=== PATIENT | male | born 1940 | race Caucasian/White ===

== ENCOUNTER 2017-04-17 09:28 | Emergency (ER) | payer MEDICARE, OTHER ==
[2017-04-17 10:07] LABS: Hematocrit 35.9 % (42.0-52.0); Hemoglobin 11.9 gm/dL (13.5-18.0); Mean Cell Volume 90.7 fl (78-100); Mean Corpuscular Hemoglobin 30.1 pg (27-31); Mean Corpuscular Hgb Conc 33.1 g/dl (32-36); Mean Platelet Volume 10.2 fl (6.0-9.5); Neutrophil # 2.7 K/mm3 (1.3-6.0); Neutrophil % 53.8 % (42-75.0); Platelet Count 153 K/mm3 (150-450); Red Blood Count 3.96 M/mm3 (4.7-6.0); Red Cell Distribution Width 15.6 % (11.5-14.0)
--- NOTE | 2017-04-17 10:17 | ERNOTE ---
Dyspnea - General Time Seen by Provider: 04/17/17 09:46 Source: patient Exam Limitations: no limitations - Immun/Allergies/Home Medications Immunizations: IMMUNIZATION HX Immunizations Up to Date Yes History of Influenza Vaccine No Hx Pneumococcal Vaccination No Allergies/Adverse Reactions: Allergies No Known Allergies Allergy (Verified 04/17/17 09:34) Home Medications: HOME MEDICATIONS Carvedilol [Coreg] 12.5 mg PO QAM 09/30/15 [Last Taken 09/29/15 10:00] Carvedilol [Coreg] 18.75 mg PO QPM 09/30/15 [Last Taken 09/29/15 18:00] Furosemide [Lasix] 80 mg PO BID 09/30/15 [Last Taken 09/30/15 08:30] Losartan Potassium [Cozaar] 150 mg PO DAILY 09/30/15 [Last Taken Unknown] Potassium Chloride [K-Dur] 20 meq PO DAILY 09/30/15 [Last Taken 09/29/15 10:00] - History of Present Illness Narrative: Patient comes in for feeling short of breath since this morning when he woke up. He denies any fevers or chills or cough or congestion. He has been diagnosed with a touch of asthma and he has an inhaler but he did not take any of his breathing treatments this morning. Review of Systems - Review of Systems Constitutional: Present: no symptoms reported EYE: Present: no symptoms reported ENT: Present: no symptoms reported Respiratory: Present: See HPI Cardiology: Present: no symptoms reported Gastrointestinal/Abdominal: Present: no symptoms reported Genitourinary: Present: no symptoms reported - Patient's Past Medical History Patient History - Medical: Anemia, Arthritis Patient History - Cardiac/Respiratory: Asthma, Hypertension Patient History - Cancer: No Hx of Cancer Patient History - Surgical Procedures: Colonoscopy, Total Knee Replacement, T & A, Other Patient History - Other: None - Family History Mother Family History - Medical: , Diabetes Type 2 Insulin Dependent Family History - Cardiac/Respiratory: CVA/Stroke Father Family History - Medical: , Diabetes Type 2 Insulin Dependent Family History - Cardiac/Respiratory: Other Sister Family History - Medical: , Diabetes Type 2 Family History - Cardiac/Respiratory: History Unknown Brother Family History - Medical: Diabetes Type 2 Family History - Cardiac/Respiratory: History Unknown - Social History Living Situations: spouse Abuse History: No History of abuse Psych History: No pertinent hx Smoking Status: Never smoker Have you smoked in the past 12 months: No Do you dip or chew tobacco: No Alcohol Use: none Drug Use: none - Immunizations Immunizations Up to Date: Yes Hx Pneumococcal Vaccination: No History of Influenza Vaccine: No Physical Exam - Physical Exam General Appearance: Present: wd/wn, alert, no apparent distress Head Exam: Present: normal inspection, no evidence of injury Ears, Nose, Throat: Present: normal ENT inspection, normal pharynx Neck: Present: normal inspection, nontender Respiratory: Present: no respiratory distress, normal breath sounds, no accessory muscle use, chest nontender, lungs clear Cardiovascular/Chest: Present: regular rate, rhythm, no murmur, normal peripheral pulses Back Exam: Present: normal inspection Extremity Exam: Present: normal inspection, normal range of motion ED Progress - Results and Orders Patient's Lab Results:: I have reviewed the patient's lab results. - Vital Signs Patient's Vital Signs:: I have reviewed the patient's vital signs. Vital Signs: Vital Signs 04/17/17 09:30 Temperature 36.7 C Pulse Rate 53 L Respiratory 16 Rate Blood Pressure 215/78 O2 Sat by Pulse 97 Oximetry - X-Ray X-Ray #1 X-Ray: chest - Progress/Reassessment Chief Complaint: Dyspnea Departure Clinical Impression: Asthma Qualifiers: Asthma severity: unspecified severity Asthma complication type: uncomplicated Qualified Code(s): J45.909 - Unspecified asthma, uncomplicated - Departure Disposition: Home self-care Condition: Good Instructions: Bronchospasm, Adult Referrals: Solomon Jensen MD [Primary Care Provider] -
[2017-04-17 10:38] VITALS: BP 156/84
== END 2017-04-17 10:38 | disposition home or self-care (01) ==
LOC: ER 09:28
DX: J45.909 Unspecified asthma, uncomplicated (principal); D64.9 Anemia, unspecified; M19.90 Unspecified osteoarthritis, unspecified site; I10 Essential (primary) hypertension

== ENCOUNTER 2017-08-22 17:46 | Emergency (ER) | payer MEDICARE, OTHER ==
[2017-08-22] MEDS ORDERED: NITROGLYCERIN 0.4 MG/TAB BTL SL ONE (17:57)
[2017-08-22] MEDS: NITROGLYCERIN 0.4 MG/TAB BTL SL PRN ×3 (18:03→18:12)
[2017-08-22 18:09] LABS: Hematocrit 37.5 % (42.0-52.0); Hemoglobin 12.4 gm/dL (13.5-18.0); Mean Cell Volume 91.9 fl (78-100); Mean Corpuscular Hemoglobin 30.4 pg (27-31); Mean Corpuscular Hgb Conc 33.1 g/dl (32-36); Mean Platelet Volume 10.5 fl (6.0-9.5); Neutrophil # 3.9 K/mm3 (1.3-6.0); Neutrophil % 59.1 % (42-75.0); Platelet Count 131 K/mm3 (150-450); Red Blood Count 4.08 M/mm3 (4.7-6.0); Red Cell Distribution Width 15.9 % (11.5-14.0); White Blood Count 6.7 K/mm3 (4.0-10.5)
--- NOTE | 2017-08-22 18:09 | ERNOTE ---
Chest Pain/Cardiac HPI Time Seen by Provider: 08/22/17 17:47 Source: patient Exam Limitations: no limitations Immunizations: IMMUNIZATION HX Immunizations Up to Date Yes History of Influenza Vaccine No Hx Pneumococcal Vaccination No Allergies/Adverse Reactions: Allergies No Known Allergies Allergy (Verified 08/22/17 17:57) Home Medications: HOME MEDICATIONS Carvedilol [Coreg] 12.5 mg PO BID 09/30/15 [Last Taken 09/29/15 10:00] Furosemide [Lasix] 80 mg PO BID 09/30/15 [Last Taken 09/30/15 08:30] Losartan Potassium [Cozaar] 150 mg PO DAILY 09/30/15 [Last Taken Unknown] Potassium Chloride [K-Dur] 20 meq PO BID 09/30/15 [Last Taken 09/29/15 10:00] Cholecalciferol (Vitamin D3) [Vitamin D3] 10,000 unit PO DAILY 08/22/17 [Last Taken Unknown] Isosorbide Mononitrate [Isosorbide Mononitrate ER] 30 mg PO DAILY 08/22/17 [ Last Taken Unknown] Levothyroxine Sodium [Synthroid] 25 mcg PO DAILY 08/22/17 [Last Taken Unknown] Ranitidine HCl [Zantac] 150 mg PO BID 08/22/17 [Last Taken Unknown] Turmeric/Turmeric Root Extract [Turmeric 500 mg Capsule] 2 each PO BID 08/22/17 [Last Taken Unknown] Narrative: Patient has had epigastric pain/ chest pain for about two months. The pain is more or less constant but worse with activity and exertion. Patient has been evaluated by his PCP for abdominal pain without any definite diagnosis yet. He has a history of CHF, states that he had a stress test two years ago. About two hours prior to coming here he started to have severe epigastric pain radiating up into his chest as well as his back, rates it 9/10, pain started at rest. He slipped a couple days ago and fell,hit the right side of his chest and has had pain in that area ever since, worse with movement. he had a late breakfast at 10:00, ate yogurt at 15:00 Timing: constant Severity/Quality: severe, pressure Location: epigastric Chest Pain Radiation: back Activities at Onset: none Modifying Factors - Improves: Present: rest Modifying Factors - Worsens: Present: movement Nitro Today/Relief: no nitro taken today Aspirin Treatment Today: 325 mg x 1, provided at home Associated Symptoms: Present: shortness of breath. Absent: headache, dizziness , syncope, cough, fever/chills, palpitations, heartburn, nausea, vomiting Prior Treatment: Denies: recently seen, currently on antibiotics Review of Systems - Review of Systems Constitutional: Absent: recent illness, fever ENT: Absent: nose congestion, sore throat Respiratory: Absent: shortness of breath, cough Cardiology: Present: See HPI Gastrointestinal/Abdominal: Absent: nausea, vomiting, abdominal pain Genitourinary: Present: no symptoms reported Musculoskeletal: Absent: back pain, joint pain Neurological: Absent: headache, weakness, numbness - Patient's Past Medical History Patient History - Medical: Anemia, Arthritis Patient History - Cardiac/Respiratory: Asthma, CHF, COPD, Hypertension Patient History - Cancer: No Hx of Cancer Patient History - Surgical Procedures: Colonoscopy, Total Knee Replacement, T & A, Other Patient History - Other: None - Family History Mother Family History - Medical: , Diabetes Type 2 Insulin Dependent Family History - Cardiac/Respiratory: CVA/Stroke Father Family History - Medical: , Diabetes Type 2 Insulin Dependent Family History - Cardiac/Respiratory: Other Sister Family History - Medical: , Diabetes Type 2 Family History - Cardiac/Respiratory: History Unknown Brother Family History - Medical: Diabetes Type 2 Family History - Cardiac/Respiratory: History Unknown - Social History Abuse History: No History of abuse Psych History: No pertinent hx Smoking Status: Never smoker Have you smoked in the past 12 months: No Do you dip or chew tobacco: No Alcohol Use: none Drug Use: none - Immunizations Immunizations Up to Date: Yes Hx Pneumococcal Vaccination: No History of Influenza Vaccine: No Physical Exam - Physical Exam General Appearance: Present: wd/wn, alert, no apparent distress Head Exam: Present: normal inspection Eye Exam: Normal inspection: bilateral Respiratory: Present: no respiratory distress, normal breath sounds, lungs clear , chest tenderness - right anterior lower ribs tender, normal inspection Cardiovascular/Chest: Present: regular rate, rhythm, no murmur Gastrointestinal/Abdominal: Present: normal bowel sounds, soft, tenderness - epigastric and right upper quadrant, distended Extremity Exam: Present: pedal edema - +1 Neurological Exam: Present: alert, oriented, normal mood/affect Skin Exam: Present: normal color, warm/dry ED Progress - Results and Orders Patient's Lab Results:: I have reviewed the patient's lab results. - Vital Signs Patient's Vital Signs:: I have reviewed the patient's vital signs. Vital Signs: Vital Signs 08/22/17 17:49 Temperature 36.7 C Pulse Rate 55 L Respiratory 16 Rate O2 Sat by Pulse 100 Oximetry - EKG EKG: NSR, unchanged from - 09/1016, other - signs of hypertrophy EKG read: Interp. by me - X-Ray X-Ray #1 X-Ray: chest - cardiomegaly, mild congestion, no acute changes Interpretation: Interp. by me - Progress/Reassessment Progress Note-Subjective: 08/22/17 18:18 pain in chest and back resolved after nitro, pain in epigastric area back to baseline (04/11) HR 40's 08/22/17 18:25 repeat EKG afib HR 48 08/22/17 18:50 reviewed prior chart, patient has had wide pulse pressure consistently has multiple chest CTs, normal aorta discussed test results with patient, patient is very adamant about not wanting to be in the hospital but wanting to go home scheduled out patient ultrasound for tomorrow morning Departure Clinical Impression: Acute chest wall pain - Departure Disposition: Home self-care Condition: Good Instructions: Chest Pain Observation Additional Instructions: follow up tomorrow for an ultrasound of your gallbladder (appointment 07:00, please check in at 06:45) have nothing to eat or drink after 11pm tonight Referrals: Solomon Jensen MD [Primary Care Provider] -
[2017-08-22 18:28] LABS: Albumin * 4.2 gm/dl (3.4-5.0); Anion Gap 11.1 mmol/L (6.8-13.8); BUN/Creatinine Ratio 17.7 (9.0-21.6); Ca. Corrected For Albumin 8.9 mg/dL (8.4-10.2); Calcium * 9.4 mg/dL (7.9-10.9); Carbon Dioxide 29.4 mmol/L (24-32.6); Potassium 3.5 mmol/L (3.4-4.6); Total Protein 8.6 gm/dL (6.2-8.2)
[2017-08-22 18:29] LABS: Troponin I 0.05 ng/ml (0.00-0.10)
[2017-08-22] MEDS ORDERED: MORPHINE SULFATE 2 MG/ML DISP.SYRIN IV ONE (18:57)
[2017-08-22] MEDS ORDERED: FUROSEMIDE 40 MG TABLET PO ONE (18:58)
[2017-08-22] MEDS ORDERED: MORPHINE SULFATE 2 MG/ML DISP.SYRIN ONE (18:59)
[2017-08-22] MEDS ORDERED: FUROSEMIDE 40 MG TABLET ONE (19:00)
[2017-08-22] MEDS ORDERED: LOSARTAN POTASSIUM 50 MG TABLET ONE (19:08)
[2017-08-22 20:00] VITALS: BP 209/78
[2017-08-22] MEDS ORDERED: LOSARTAN POTASSIUM 50 MG TABLET PO ONE (20:00)
== END 2017-08-22 20:00 | disposition home or self-care (01) ==
LOC: ER 17:46
DX: R07.89 Other chest pain (principal); D64.9 Anemia, unspecified; M19.90 Unspecified osteoarthritis, unspecified site; J44.9 Chronic obstructive pulmonary disease, unspecified; I10 Essential (primary) hypertension

== ENCOUNTER 2017-10-04 10:54 | Inpatient (IN) | payer MEDICARE, OTHER ==
[~2017-10-04 10:54] MED LIST: RINGER'S SOLUTION,LACTATED 1,000 ML IV PRN; ceFAZolin SODIUM 2 GM in DEXTROSE 5 % IN WATER 50 ML IV PRN
[2017-10-04] MEDS ORDERED: RINGER'S SOLUTION,LACTATED 1,000 ML IV ONE ×3 (11:39→13:20)
[2017-10-04] MEDS ORDERED: ceFAZolin SODIUM 1 GM VIAL IV ONE (11:55)
[2017-10-04] MEDS ORDERED: BUPIVACAINE HCL/EPINEPHRINE 50 ML VIAL IJ ONE ×2 (12:20→12:31)
[2017-10-04] MEDS ORDERED: MUPIROCIN 22 APPL TUBE TP ONE ×4 (12:33→13:40)
[2017-10-04] MEDS ORDERED: RINGER'S SOLUTION,LACTATED 1,000 ML IV PRN (14:43)
[2017-10-04] MEDS ORDERED: oxyCODONE HCL/ACETAMINOPHEN 1 TAB TABLET PO ONE (15:15)
[2017-10-04] MEDS ORDERED: PANTOPRAZOLE SODIUM 40 MG in NORMAL SALINE 100 ML IV ONE (15:46)
[2017-10-04] MEDS: MORPHINE SULFATE 2 MG/ML DISP.SYRIN IV PRN ×5 (16:14→18:00)
[2017-10-04] MEDS ORDERED: oxyCODONE HCL/ACETAMINOPHEN 1 TAB TABLET PO PRN (16:47)
[2017-10-04] MEDS ORDERED: ONDANSETRON HCL/PF 2 MG/ML VIAL IV PRN (16:47)
[2017-10-04] MEDS ORDERED: HYDROmorphone HCL IN 0.9% NACL 50 ML CARTRIDGE IV PRN (16:47)
--- NOTE | 2017-10-04 17:09 | OR ---
Operative Report - Dictated Report Narrative: Operative Report Date of operation: 10/04/2017 Preoperative diagnosis: Epigastric pain, anemia, cholelithiasis Postoperative diagnosis: Gastritis (pathology CLOtest pending). Cholelithiasis and cholecystitis Operation: EGD with biopsies. Laparoscopic cholecystectomy Surgeon: Dr Garcia Anesthesia: Gen. bandar Pace CRNA Indications for procedure: The patient is a 77-year-old male referred by Dr. Jensen. The patient has had epigastric and right upper quadrant discomfort. He has gallstones on ultrasound. He has significant GERD symptoms Findings: Significant gastritis (pathology and CLOtest pending). Evidence of chronic cholecystitis with multiple adhesions Narrative of procedure: The patient was identified preoperatively, and prior to the administration of anesthetic a multidisciplinary timeout was observed EGD: With the patient in the supine position, SCDs were placed, glide scope assisted endotracheal intubation was performed, and general endotracheal anesthetic administered. The flexible fiberoptic gastroscope was advanced into the posterior pharynx which appeared normal. The endotracheal tube was seen to be in good position. The supraglottic larynx appeared normal. The scope was advanced under direct vision into the proximal esophagus which appeared normal. The esophagus appeared freely distensible with normal mucosa. The esophageal mucosa appeared normal down to the gastroesophageal junction which was sharp and noninflamed. The GE junction appeared normally distensible. The scope was advanced into the stomach which was insufflated with air. Immediately apparent was pending gastric erythema with several friable areas although no clinton ulcers or neoplastic-appearing lesions were present including a retroflexed view of the gastric fundus. The pylorus appeared patent. The scope was advanced into the duodenal bulb which appeared normal. The scope was advanced further to the horizontal portion of the duodenum which appeared normal , specifically the villous architecture appeared well preserved and clear bile was present. The scope was slowly withdrawn through the duodenal bulb with confirmation that no active ulcer was present. The scope was withdrawn into the stomach and personal banking representative biopsies of gastric mucosa obtained for CLOtest and pathology. The biopsy sites were seen to be hemostatic. The insufflated air was removed and the stomach, the scope withdrawn from the patient, and this portion of the procedure terminated. LAPAROSCOPIC CHOLECYSTECTOMY: 2 g of intravenous Ancef were administered. The patient's abdomen was prepped with Betadine solution and a generous operating field outlined with 4 sterile towels. The remainder the patient was covered with a sterile disposable drape. An infraumbilical skin incision was made. Dissection was carried along the umbilical stalk until the fascia of the linea alba was encountered. This was incised. The peritoneum was then elevated and incised to allow entry into the abdomen under direct vision. A Hussan cannula was placed, and the abdomen insufflated with CO2. The laparoscopic camera was introduced and the abdomen briefly explored. Portions of the liver and stomach visualized appeared normal. Omentum was adherent over the expected location of the gallbladder. The right colon appeared normal. Next under direct vision 3 additional working ports were inserted through separate skin incisions, one in the subxiphoid, one in the right upper quadrant, and one in the right flank. Omental adhesions were removed from the apex of the gallbladder by electrocautery and scissor dissection until the apex of the gallbladder was free. The apex of the gallbladder was retracted cephalad. Using a combination of blunt, hydrostatic, and electrocautery dissection the omental adhesions and transverse colon were removed from the gallbladder down to the expected location of the cystic duct. The cystic duct was dissected free for a sufficient distance for confident identification. It was doubly clipped and divided. The cystic artery was identified doubly clipped and divided. The gallbladder was then removed from the liver bed by retrograde electrocautery dissection. Prior to severing the last attachments of the gallbladder the liver bed was inspected and found to be hemostatic with no evidence of bile leak. The previously placed clips were seen to be intact. The right upper quadrant was suctioned clean. The last attachments of the gallbladder were divided. It was placed in an Endobag and parked in the right upper quadrant. The smaller working ports were withdrawn under direct vision to ensure entry site hemostasis. The gallbladder was removed in conjunction with the Hussan cannula. The pneumoperitoneum was allowed to escape, and after receiving a correct sponge needle and instrument count attention was turned to closing the abdomen. The fascia and peritoneum at the umbilicus were approximated with interrupted sutures of #1 Vicryl. Skin incisions were approximated with interrupted vertical mattress sutures of 4-0 nylon. The operative sites were washed and dried. Dressings of Bactroban ointment and large Band-Aids were applied to the small port sites. The umbilical incision was dressed with Bactroban ointment, 2 x 2, large Band-Aid and Medipore tape. The operative procedure was terminated at this point. The patient tolerated the anesthetic and procedure well without complication. There was no measurable blood loss. The gallbladder was submitted to pathology. 0.25% Marcaine with epinephrine was used for local anesthetic infiltration. The patient was transferred to the recovery room awake, extubated , and in stable condition. The patient remained stable throughout a period of postoperative observation. He was able to tolerate po intake but had significant abdominal discomfort requiring IV medication for control. I reviewed the operative findings with him and his and he was given copies of the photographs which appear in the medical record. He will be placed in observation bed to achieve better pain control. His usual medications will be resumed. Reviewed and electronically signed
[2017-10-04] MEDS: ISOSORBIDE MONONITRATE 30 MG TAB.SR.24H PO SCH (17:58)
[2017-10-04] MEDS: LOSARTAN POTASSIUM 50 MG TABLET PO SCH (17:59)
[2017-10-04] MEDS ORDERED: MORPHINE SULFATE 2 MG/ML DISP.SYRIN ONE (18:54)
[2017-10-04] MEDS: MORPHINE SULFATE 4 MG/ML SYRG IV PRN ×2 (18:56→19:18)
[2017-10-04] MEDS ORDERED: CARVEDILOL 25 MG TABLET ONE (20:14)
[2017-10-04] MEDS: CARVEDILOL 12.5 MG TABLET PO SCH (20:14)
[2017-10-05] MEDS: RINGER'S SOLUTION,LACTATED 1,000 ML IV PRN ×2 (01:48→20:33)
[2017-10-05] MEDS: LEVOTHYROXINE SODIUM 25 MCG TABLET PO SCH (07:08)
[2017-10-05] MEDS ORDERED: MORPHINE SULFATE 2 MG/ML DISP.SYRIN IV PRN (07:45)
[2017-10-05] MEDS ORDERED: METOCLOPRAMIDE HCL 5 MG/ML VIAL IV ONE (08:28)
[2017-10-05] MEDS ORDERED: BISACODYL 5 MG TABLET.DR PO ONE ×2 (08:29→16:17)
[2017-10-05] MEDS: CARVEDILOL 12.5 MG TABLET PO SCH ×2 (09:28→20:28)
[2017-10-05] MEDS: ISOSORBIDE MONONITRATE 30 MG TAB.SR.24H PO SCH (09:28)
[2017-10-05] MEDS: LOSARTAN POTASSIUM 50 MG TABLET PO SCH (09:28)
[2017-10-05] MEDS: AMOXICILLIN TRIHYDRATE 500 MG CAPSULE PO SCH (12:35)
[2017-10-05] MEDS ORDERED: SODIUM PHOSPHATE,MONO-DIBASIC 1 ENEMA BTL RC ONE (16:17)
--- NOTE | 2017-10-05 18:30 | PN ---
Dictated Progress Note - Date and Time Seen: Date: 10/05/17 Time: 18:27 - 3rd visit - Progress Note Narrative: Vital Signs - Last Taken Temp 36.4 C L 10/05/17 15:29 Pulse 63 10/05/17 15:29 Resp 16 10/05/17 15:29 BP 180/64 10/05/17 16:56 Pulse Ox 93 10/05/17 15:51 Culture 10/04/17 12:15 CLOtest - Final Biopsy POD#1 laparoscopic cholecystectomy for cholelithiasis and cholecystitis with H Pylori infection on gastric biopsy He vomited twice and BP control suboptimal. No BM/flattus until enema and " feels full again". Pain better controlled, but still uses [employer] occasionally. Will require an additional midnight until ready for home.
[2017-10-05] MEDS: CLARITHROMYCIN 500 MG TABLET PO SCH (20:28)
[2017-10-06] MEDS: AMOXICILLIN TRIHYDRATE 500 MG CAPSULE PO SCH (00:39)
[2017-10-06] MEDS: LOSARTAN POTASSIUM 50 MG TABLET PO SCH (09:26)
[2017-10-06] MEDS: CLARITHROMYCIN 500 MG TABLET PO SCH (09:27)
[2017-10-06] MEDS: ISOSORBIDE MONONITRATE 30 MG TAB.SR.24H PO SCH (09:27)
[2017-10-06] MEDS: CARVEDILOL 12.5 MG TABLET PO SCH (09:27)
[2017-10-06] MEDS: LEVOTHYROXINE SODIUM 25 MCG TABLET PO SCH (09:27)
--- NOTE | 2017-10-06 12:21 | DS ---
(1) Cholecystitis with cholelithiasis Diagnosis(s): H Pylori infection Problem: Resolved Qualifiers: Cholelithiasis location: gallbladder Cholecystitis acuity: acute and chronic Biliary obstruction: without biliary obstruction Qualified Code(s): K80.12 - Calculus of gallbladder with acute and chronic cholecystitis without obstruction Description of Stay: The patient is a 77-year-old male with 2 years of abdominal discomfort. Ultrasound showed cholelithiasis and cholecystitis. He was brought for ambulatory surgery EGD with biopsies and laparoscopic cholecystectomy. Preoperatively he used chlorhexidine wipes and preoperative antibiotics were given. SCDs and early ambulation were used for VTE prophylaxis. On EGD he was found to have severe gastritis and the CLOtest immediately turned positive. His gallbladder showed evidence of chronic inflammation with adhesions to surrounding structures. The gallbladder could be removed laparoscopically. Postoperatively he had considerable abdominal discomfort which required IV medication for pain control and he was placed initially in an Observation bed. IV fluids, SEAT JOINER analgesics were given. VTE prophylaxis was accomplished with SCDs and early ambulation with pharmacologic intervention contraindicated due to postoperative bleeding concerns. By the morning of the first postoperative day his vital signs were relatively normal with exception of elevated blood pressure however he was vomiting and despite medication over the course of the day could not maintain adequate by mouth intake for discharge although he did tolerate initiated medications for his H. pylori. He was therefore placed in a acute status with continued IV fluids, IV pain medication, and anti-emetics. His bowels did move with an enema. By the morning of the second postoperative day he was afebrile with stable vital signs. He was able to tolerate by mouth intake and was up with minimal assistance. His incisions appear to be clean and healing well. He was discharged home with instructions not to lift and not to drive. He is to keep the current dressings dry but may shower and change the dressings daily or as needed. He has phone numbers to call for questions or concerns. He was given written prescriptions for a Prevpac and Percocet for pain. A return office appointment will be made for 1 week. Procedures Performed: see notes below - EGD with biopsies Laparoscopic cholecystectomy Discharge Location: Home Disposition: Home self-care Condition: Good Discharge Activity: Activity as tolerated, No Lifting Discharge Diet: General/regular food Referrals: Solomon Jensen MD [Primary Care Provider] - Problem Oriented Discharge Instructions to Patient/Family: Laparoscopic Cholecystectomy, Care After Additional Patient Instructions (free text): Follow up with Dr. Garcia 7 days. Complete Home Medications List: Complete Home Medication List: Furosemide [Lasix] 80 mg PO BID 09/30/15 Losartan Potassium [Cozaar] 150 mg PO DAILY 09/30/15 Cholecalciferol (Vitamin D3) [Vitamin D3] 10,000 unit PO DAILY 08/22/17 Isosorbide Mononitrate [Isosorbide Mononitrate ER] 30 mg PO DAILY 08/22/17 Levothyroxine Sodium [Synthroid] 25 mcg PO DAILY 08/22/17 Ranitidine HCl [Zantac] 150 mg PO BID 08/22/17 Turmeric/Turmeric Root Extract [Turmeric 500 mg Capsule] 600 mg PO BID 08/22/17 Carvedilol [Coreg] 12.5 mg PO BID 09/22/17 Potassium Chloride [Klor-Con 10] 10 meq PO BID 09/22/17 Citrulline [Pure l-Citrulline] 750 mg PO BID 10/05/17
[2017-10-06 13:10] VITALS: BP 151/63
== END 2017-10-06 13:15 | disposition home or self-care (01) | DRG 418 ==
LOC: AMB 10:54 → MS 16:46 → SCU 18:25 → MS 10-05 07:27 → OBSVTOIN 10-05 18:26
PROVIDERS: ADMIT Surgery; ATTEND Surgery
PROC: 0DB78ZX Excision of Stomach, Pylorus, Via Natural or Artificial Opening Endoscopic, Diagnostic (ICD-10-PCS; principal; 2017-10-04)
PROC: 0FT44ZZ Resection of Gallbladder, Percutaneous Endoscopic Approach (ICD-10-PCS; 2017-10-04)
DX: K80.12 Calculus of gallbladder with acute and chronic cholecystitis without obstruction (principal); A04.8 Other specified bacterial intestinal infections; R11.10 Vomiting, unspecified; J44.9 Chronic obstructive pulmonary disease, unspecified; J45.50 Severe persistent asthma, uncomplicated; E03.9 Hypothyroidism, unspecified; I10 Essential (primary) hypertension; E78.5 Hyperlipidemia, unspecified; Z91.018 Allergy to other foods
CPT/HCPCS: 43239; 47562; 87081; 88304; 88305; 88312; 88313; G0378; J2405